=== PATIENT | female | born 1990 | race Two or more races ===

== ENCOUNTER 2020-10-18 22:28 | Inpatient (IN) | payer OTHER ==
[~2020-10-18] VITALS: Ht 162.6 cm; Wt 93.0 kg
[2020-10-18] MEDS ORDERED: OXYTOCIN 30U/ 0.9% NaCL 500ML 500 ML ONE ×2 (23:07→23:29)
[2020-10-18] MEDS ORDERED: NEWBORN KIT ONE (23:07)
[2020-10-18] MEDS ORDERED: LIDOCAINE 1%, 20ML ONE (23:29)
[2020-10-18] MEDS ORDERED: MISOPROSTOL 200 MCG TABLET ONE (23:29)
[2020-10-18] MEDS ORDERED: METOCLOPRAMIDE 5 MG/ML, 2ML IVPush PRN (23:30)
[2020-10-18] MEDS ORDERED: CALCIUM CARBONATE 500 MG TAB.CHEW PO PRN (23:30)
[2020-10-18] MEDS ORDERED: SODIUM CITRATE/CITRIC ACID 30 ML UDC PO PRN (23:30)
[2020-10-18] MEDS ORDERED: LACTATED RINGERS 1,000 ML IV SCH (23:30)
[2020-10-18] MEDS ORDERED: FENTANYL PF 100 MCG/2ML IVPush PRN (23:30)
[2020-10-18] MEDS ORDERED: TERBUTALINE 1 MG/ML, 1ML IVPush PRN (23:30)
[2020-10-18] MEDS ORDERED: TERBUTALINE 1 MG/ML, 1ML SQ PRN (23:30)
[2020-10-18] MEDS ORDERED: OXYTOCIN 30U/ 0.9% NaCL 500ML 500 ML IV PRN (23:30)
[2020-10-18] MEDS ORDERED: ONDANSETRON 2MG/ML, 2ML IVPush PRN (23:30)
[2020-10-18] MEDS ORDERED: FENTANYL PF 100 MCG/2ML IV PRN (23:30)
[2020-10-18] MEDS ORDERED: D5%-LACTATED RINGERS 1,000 ML IV SCH (23:30)
[2020-10-18 23:40] VITALS: BP 106/75
[2020-10-18 23:41] LABS: BASOPHILS % (AUTO) 0 % (0-1); EOSINOPHILS % (AUTO) 0 % (1-7); LYMPHOCYTES % (AUTO) 17 % (22-44); MEAN CORPUSCULAR HEMOGLOBIN 29.2 pg (27.0-34.8); MEAN CORPUSCULAR HGB CONC 33.3 g/dL (32.4-35.8); MEAN PLATELET VOLUME 9.5 fL (7.4-10.4); MONOCYTES % (AUTO) 6 % (2-9); NEUTROPHILS % (AUTO) 77 % (42-75); PLATELET COUNT 259 x10^3/uL (130-400); RED BLOOD COUNT 4.16 x10^6/uL (3.82-5.3); RED CELL DISTRIBUTION WIDTH 14.4 % (9.6-15.2)
[2020-10-18] MEDS ORDERED: PLEASE ENTER HEIGHT AND WEIGHT MC SCH (23:45)
[2020-10-18] MEDS ORDERED: PLEASE ENTER ALLERGIES MC SCH (23:45)
[2020-10-19] MEDS ORDERED: FENTANYL/BUPIV./NS/PF 250 ML EPIDCONT ONE (03:56)
[2020-10-19] MEDS ORDERED: EPHEDRINE 50 MG/ML, 1ML ONE (04:29)
[2020-10-19] MEDS ORDERED: EPHEDRINE 50 MG/ML, 1ML IVPush PRN (05:30)
[2020-10-19] MEDS ORDERED: NALOXONE 0.4 MG/ML, 1ML IVPush PRN (05:30)
[2020-10-19] MEDS ORDERED: LACTATED RINGERS 1,000 ML IVBOLUS PRN (05:30)
[2020-10-19] MEDS ORDERED: FENTANYL/BUPIV./NS/PF 250 ML EPIDCONT SCH (05:30)
[2020-10-19] MEDS ORDERED: LACTATED RINGERS 1,000 ML IV SCH (05:30)
[2020-10-19] MEDS ORDERED: ACETAMINOPHEN 325 MG TABLET PO PRN (06:00)
[2020-10-19] MEDS ORDERED: OXYTOCIN 30U/ 0.9% NaCL 500ML 500 ML IV SCH (06:00)
[2020-10-19] MEDS ORDERED: ONDANSETRON 2MG/ML, 2ML IV PRN (06:00)
[2020-10-19] MEDS ORDERED: SIMETHICONE 80 MG CHEW TAB PO PRN (06:00)
[2020-10-19] MEDS ORDERED: METHYLERGONOVINE 0.2 MG/ML IM PRN (06:00)
[2020-10-19] MEDS ORDERED: OXYcodone/APAP 5/325MG TABLET PO PRN (06:00)
[2020-10-19] MEDS ORDERED: MISOPROSTOL 200 MCG TABLET PR PRN (06:00)
[2020-10-19] MEDS ORDERED: CARBOPROST TROMETHAMINE 250 MCG/ML, 1ML IM PRN (06:00)
[2020-10-19 08:30] VITALS: BP 112/68
[2020-10-19] MEDS: PRENATAL VIT/IRON/FA 1 EACH TABLET PO SCH ×2 (09:00→20:45)
[2020-10-19 12:30] VITALS: BP 118/75
[2020-10-19 14:00] LABS: BASOPHILS % (AUTO) 0 % (0-1); EOSINOPHILS % (AUTO) 1 % (1-7); LYMPHOCYTES % (AUTO) 14 % (22-44); MEAN CORPUSCULAR HEMOGLOBIN 29.3 pg (27.0-34.8); MEAN CORPUSCULAR HGB CONC 33.1 g/dL (32.4-35.8); MEAN PLATELET VOLUME 9.7 fL (7.4-10.4); MONOCYTES % (AUTO) 6 % (2-9); NEUTROPHILS % (AUTO) 80 % (42-75); PLATELET COUNT 218 x10^3/uL (130-400); RED BLOOD COUNT 3.78 x10^6/uL (3.82-5.3); RED CELL DISTRIBUTION WIDTH 14.3 % (9.6-15.2)
[2020-10-19] MEDS: OXYcodone/APAP 5/325MG TABLET PO PRN (15:01)
[2020-10-19] MEDS: IBUPROFEN 600 MG TABLET PO PRN (15:01)
[2020-10-19 16:30] VITALS: BP 122/77
[2020-10-19 20:30] VITALS: BP 107/71
[2020-10-19] MEDS: DOCUSATE 100 MG CAPSULE PO PRN (20:45)
[2020-10-20] MEDS: IBUPROFEN 600 MG TABLET PO PRN ×2 (00:17→08:33)
[2020-10-20 01:25] VITALS: BP 112/67
[2020-10-20] MEDS: PRENATAL VIT/IRON/FA 1 EACH TABLET PO SCH (08:32)
[2020-10-20] MEDS: OXYcodone/APAP 5/325MG TABLET PO PRN ×2 (08:32→12:42)
[2020-10-20] MEDS: DOCUSATE 100 MG CAPSULE PO PRN (08:33)
[2020-10-20 09:00] VITALS: BP 123/86
== END 2020-10-20 13:47 | disposition home or self-care (01) | DRG 807 ==
LOC: LDOP 22:28 → LDIP 23:07 → 2NW 10-19 08:30
PROVIDERS: ADMIT Obstetrics & Gynecology; ATTEND Obstetrics & Gynecology
PROC: 10E0XZZ Delivery of Products of Conception, External Approach (ICD-10-PCS; principal; 2020-10-19)
PROC: 3E033VJ Introduction of Other Hormone into Peripheral Vein, Percutaneous Approach (ICD-10-PCS; 2020-10-19)
DX: O99.814 Abnormal glucose complicating childbirth (principal); Z37.0 Single live birth; Z3A.37 37 weeks gestation of pregnancy; Z86.16 Personal history of COVID-19; Z90.49 Acquired absence of other specified parts of digestive tract; Z20.822 Contact with and (suspected) exposure to COVID-19
CPT/HCPCS: 36415; 85025; 86592; 86900; 87635; 89060; G0378; J3010; J2590; J7120; Q0114